=== PATIENT | male | born 1935 | race Caucasian/White ===

== ENCOUNTER 2020-05-28 11:28 | Emergency (ER) | payer MEDICARE ==
[~2020-05-28] VITALS: Ht 180.3 cm; Wt 74.8 kg
[2020-05-28 12:42] LABS: ABSOLUTE BASOPHILS 0.1 thou/uL (0.0-0.2); ABSOLUTE EOSINOPHILS 0.2 thou/uL (0.0-0.7); ABSOLUTE LYMPHOCYTES 1.2 thou/uL (0.8-5.3); BASOPHILS 0.7 %; HEMATOCRIT 37.8 % (42.0-52.0); HEMOGLOBIN 12.8 gm/dL (14.0-18.0); LYMPHOCYTES 12.5 %; MCH 32.1 pg (26.0-34.0); MCHC 33.9 g/dL (28.0-37.0); MCV 94.6 fL (80.0-100.0); MONOCYTES 10.3 %; MPV 7.4 fl. (7.2-11.1); NUCLEATED RBCS 0 /100WBC; PLATELET COUNT* 221 thou/uL (150-400); POLYS 74.5 %; RDW-CV 13.8 % (10.5-14.5); WBC 9.4 thou/uL (4.0-11.0)
[2020-05-28 12:48] LABS: CALCIUM 9.9 mg/dL (8.5-10.1); CREATININE 1.3 mg/dL (0.6-1.3); POTASSIUM 4.2 mmol/L (3.5-5.1)
[2020-05-28 12:55] LABS: ALBUMIN 4.2 g/dL (3.4-5.0); TOTAL BILIRUBIN 0.4 mg/dL (<0.1-1.0); TOTAL PROTEIN 8.2 g/dL (6.4-8.2)
[2020-05-28] MEDS ORDERED: MIRALAX17 GM PO (15:06)
[2020-05-28 15:21] VITALS: BP 143/74
== END 2020-05-28 15:24 | disposition home or self-care (01) ==
LOC: M.ERS 11:28
PROVIDERS: Physician Assistant
DX: K59.00 Constipation, unspecified (principal); Z88.8 Allergy status to other drugs, medicaments and biological substances

== ENCOUNTER 2020-08-27 17:32 | Observation (INO) | payer MEDICARE ==
[~2020-08-27] VITALS: Ht 180.3 cm; Wt 57.2 kg
--- NOTE | ~2020-08-27 | EMS ---
[address] [address] EMS Patient Care Report Name: ADELINE GONSALES Room: [facility]#: [id number] Admission: 08/27/20 Attend Phys: Discharge: Date of : 37 Report #: [id number] THIS REPORT FOR: //name// Report Transmitted: 08/27/2020 19:08 EMS Care Summary [facility] Incident [id number] @ 08/27/2020 16:23 Incident Location [address] [address] Patient ADELINE GONSALES Male, 85 Years 1935 Patient Address [address] [address] Patient History Urinary Tract Infection (UTI),Constipation, Patient Allergies No known allergies, Patient Medications ASA, Chief Complaint "I can't poop." Disposition Transported No Lights/[place] Dispatch Reason Abdominal Pain/Problems Transported To [facility] Narrative Dispatch: Med 1 response requested to Padmaja Milian for a male who is constipated. Med 1 copied the call and began our response to the scene. We arrived on scene after Arun BOWLES without incident. We were met by Arun BOWLES with a brief report on the situation. [address] [address] EMS Patient Care Report Name: ADELINE GONSALES [id number] Admission: 08/27/20 Attend Phys: Discharge: Date of : 37 Report #: [id number] Chief complaint: Male sitting up right on his porch. Alert with a GCS of 15. He advised he can't have a bowel movement. History of present illness: Patient has chronic constipation related issues due to an known cause. He finds it difficult to have a bowel movement every day but is able to with the help of laxatives. He tried to take 4 Laxative 4 hours prior to calling EMS but still hasn't been able to have a bowel movement. He feels the urge to go but can't. He has lower abdominal pain associated with abdominal distention. The pain decreases with sitting down but increased with movement. He advised that he hasn't been drinking enough water but has had a normal appetite. He denied any dizziness or shortness of air. Assessment: Alert with a GCS of 15. Airway open and clear while self maintained. Lungs clear upon assessment with non labored breathing. Able to speak in full sentences without difficulty noted. Skin noted to be pink, warm and dry. Pulse regular felt at the radial. No outward deformities noted. Lower abdomen distended. No pain increase with palpation. Secondary assessment: Assessment noted in tab Reason for transport: Patient requested transport to the ER for assessment. Treatment: ALS assessment, vitals, ECG monitor showing sinus rhythm, IV access with fluid administered, transport. Summary: Patient was assisted to walk to the cot where he had a seat. He was covered and secured with all seat belts. He was placed into the ambulance. Vitals were obtained. IV access obtained with fluid administered. We began our transport non emergent to [facility] for further assessment. Patient was monitored with no acute changes in condition. Patient conversated with EMS the entire transport with no appearance of distress. Radio report was called in to the ER via med radio. Upon arrival to the ER patient was taken inside and to the ER bed where he was moved. Report was given to the ER nurse and care was then transferred. Signatures were obtained and care was transferred. Med 1 cleared to return to service. Initial Vitals @16:50P: 92,R: 22,BP: 180/90,Pain: 4/10,GCS: 15,Glucose: 181,SpO2: 99,Revised Trauma: 12, @17:15P: 82,R: 18,BP: 178/90,Pain: 6/10,GCS: 15,SpO2: 100,Revised Trauma: 12, @17:01P: 77,R: 22,BP: 152/90,Pain: 6/10,GCS: 15,SpO2: 100,Revised Trauma: 12, @16:36P: 79,R: 18,BP: 178/94,Pain: 6/10,GCS: 15,SpO2: 100,Revised Trauma: 12, @17:21P: 85,R: 22,BP: 154/90,Pain: 6/10,GCS: 15,SpO2: 100,Revised Trauma: 12, @16:41P: 90,R: 18,BP: 129/93,Pain: 6/10,GCS: 15,SpO2: 90,Revised Trauma: 12, [place] [address] EMS Patient Care Report Name: RUTHY GONSALESARD [id number] Admission: 08/27/20 Attend Phys: Discharge: Date of : 37 Report #: [id number] Assessments @16:38MENTAL:Person Oriented,Time Oriented,Place Oriented,Event Oriented,SKIN:HEENT:LUNG SOUNDS:General: Absent Bowel Sounds,Right Lower: Distension,Left Lower: Distension,ABDOMEN:General: Absent Bowel Sounds,Right Lower: Distension,Left Lower: Distension,PELVIS//GI:EXTREMITIES:PULSE:NEURO:@17:09MENTAL:Person Oriented,Time Oriented,Event Oriented,Place Oriented,SKIN:HEENT:LUNG SOUNDS:General: Absent Bowel Sounds,Left Lower: Distension,Right Lower: Distension,ABDOMEN:General: Absent Bowel Sounds,Left Lower: Distension,Right Lower: Distension,PELVIS//GI:EXTREMITIES:PULSE:NEURO: Impression Abdominal Pain Procedures @16:37ALS AssessmentResponse: UnchangedSucceeded@16:51Lactated Ringers 10cc (20 ga) Site: Forearm-LeftResponse: UnchangedSucceeded@16:54Lactated Ringers 300cc () Site: Forearm-LeftResponse: UnchangedSucceeded@PTASurgical Mask on PatientResponse: Unchanged Timeline CADMIUM BURNER,Surgical Mask on Patient,Response: Unchanged 16:19,Call Received 16:23,Dispatched 16:24,En Route 16:35,On Scene 16:36,At Patient 16:36,BP: 178/94 M,PULSE: 79,RR: 18 R,SPO2: 100 Ox,ETCO2: ,BG: ,PAIN: 6,GCS: 15, 16:37,ALS Assessment,Response: UnchangedSucceeded, 16:41,BP: 129/93 M,PULSE: 90,RR: 18 R,SPO2: 90 Ox,ETCO2: ,BG: ,PAIN: 6,GCS: 15, 16:47,Depart Scene 16:50,BP: 180/90 M,PULSE: 92,RR: 22 R,SPO2: 99 Ox,ETCO2: ,B,PAIN: 4,GCS: 15, 16:51,Lactated Ringers 10cc 20 ga Site: Forearm-Left,Response: UnchangedSucceeded, 16:54,Lactated Ringers 300cc Site: Forearm-Left,Response: UnchangedSucceeded, 17:01,BP: 152/90 M,PULSE: 77,RR: 22 R,SPO2: 100 Ox,ETCO2: ,BG: ,PAIN: 6,GCS: 15, 17:03,At Destination 17:15,BP: 178/90 M,PULSE: 82,RR: 18 R,SPO2: 100 Ox,ETCO2: ,BG: ,PAIN: 6,GCS: 15, 17:21,BP: 154/90 M,PULSE: 85,RR: 22 R,SPO2: 100 Ox,ETCO2: ,BG: ,PAIN: 6,GCS: 15, 18:35,[place] [address] EMS Patient Care Report Name: ADELINE GONSALES Room: [facility]#: [id number] Admission: 08/27/20 Attend Phys: Discharge: Date of : 37 Report #: [id number] Disclaimer v1.1 Copyright 2020 [employer] This EMS Care Summary contains data elements from the applicable legal record (which may be displayed differently). It is designed to provide pertinent information for the following purposes: continuity of care, clinical quality, and state data reporting. The complete legal record is available to ED staff and administrators of the receiving hospital in [facility]'s Patient Tracker. All data is provided "as is."
[~2020-08-27 17:32] MED LIST: MIRALAX17 GM PO
[2020-08-27 17:39] VITALS: BP 172/99
[2020-08-27 18:04] LABS: URINE BILIRUBIN NEGATIVE (Negative); URINE BLOOD TRACE (Negative); URINE CLARITY CLEAR; URINE COLOR YELLOW; URINE GLUCOSE-RANDOM NEGATIVE (Negative); URINE KETONES NEGATIVE (Negative); URINE LEUKOCYTES-REFLEX NEGATIVE (Negative); URINE NITRITE-REFLEX NEGATIVE (Negative); URINE PROTEIN NEGATIVE (Negative); URINE UROBILINOGEN 0.2 E.U./dl (0.2-1.0)
[2020-08-27 18:11] LABS: ABSOLUTE BASOPHILS 0.1 thou/uL (0.0-0.2); ABSOLUTE EOSINOPHILS 0.2 thou/uL (0.0-0.7); ABSOLUTE LYMPHOCYTES 1.2 thou/uL (0.8-5.3); ABSOLUTE MONOCYTES 0.8 thou/uL (0.0-1.2); ABSOLUTE NEUTROPHILS 8.9 thou/uL (1.6-8.1); BASOPHILS 0.5 %; EOSINOPHILS 1.5 %; HEMATOCRIT 36.4 % (42.0-52.0); HEMOGLOBIN 12.3 gm/dL (14.0-18.0); MCH 31.6 pg (26.0-34.0); MCHC 33.7 g/dL (28.0-37.0); MCV 93.9 fL (80.0-100.0); MONOCYTES 6.8 %; MPV 7.1 fl. (7.2-11.1); NUCLEATED RBCS 0 /100WBC; PLATELET COUNT* 216 thou/uL (150-400); POLYS 80.2 %; RBC 3.87 mil/uL (4.50-6.00); RDW-CV 12.5 % (10.5-14.5); WBC 11.1 thou/uL (4.0-11.0)
[2020-08-27 18:22] LABS: CALCIUM 9.5 mg/dL (8.5-10.1); CREATININE 1.4 mg/dL (0.6-1.3); POTASSIUM 4.1 mmol/L (3.5-5.1)
[2020-08-27 18:31] LABS: ALBUMIN 3.9 g/dL (3.4-5.0); TOTAL BILIRUBIN 0.2 mg/dL (<0.1-1.0); TOTAL PROTEIN 8.1 g/dL (6.4-8.2)
[2020-08-27] MEDS ORDERED: DULCOLAX10 MG RECTAL (21:45)
[2020-08-27] MEDS ORDERED: MIRALAX119 GM PO (21:45)
[2020-08-28 01:45] VITALS: BP 132/66
[2020-08-28 02:00] VITALS: BP 138/78
[2020-08-28 08:00] VITALS: BP 126/57
[2020-08-28 10:53] VITALS: BP 138/78
--- NOTE | 2020-08-29 10:19 | EKG ---
[place] [address] ELECTROCARDIOGRAM REPORT Name: ADELINE GONSALES Room: [address] M.R.#: [id number] Admission: 08/27/20 Attend Phys: Ramo Demarco, Discharge: 08/28/20 Date of : 37 Date of Service: 08/27/20 1743 Report #: [id number] THIS REPORT FOR: //name// [facility] ED Test Date: 2020-08-27 Test Time: 17:43:25 Pat Name: ADELINE GONSALES Department: Room: [facility] Gender: M Detail Assembler: : 1935 Requested By: Issa Arellano Order Number: [id number] MD: Anupam Eddy Measurements Intervals [place] Rate: 69 P: 66 CO: 223 QRS: -38 QRSD: 120 T: 69 QT: 399 QTc: 428 Interpretive Statements Sinus rhythm Atrial premature complex Prolonged CO interval Nonspecific IVCD with LAD ST elevation, consider early repolarization Baseline wander in lead(s) V4 No previous ECG available for comparison Electronically Signed On 08-29-2020 10:19:41 CDT by Anupam Eddy [email or web address] <ELECTRONICALLY SIGNED> By: Anupam Eddy MD, [facility] 08/29/20 1019 1743 1743 Anupam Eddy MD, [facility] /EPI
== END 2020-08-28 11:57 | disposition home or self-care (01) ==
LOC: M.ERS 17:32 → M.TBA-ER 22:16 → M.ORTHSURG 08-28 02:14
PROVIDERS: Family Medicine; ADMIT Internal Medicine; ATTEND Internal Medicine
DX: R10.9 Unspecified abdominal pain (principal); Z20.822 Contact with and (suspected) exposure to COVID-19; I71.4 Abdominal aortic aneurysm, without rupture; E11.9 Type 2 diabetes mellitus without complications; Z79.899 Other long term (current) drug therapy